=== PATIENT | female | born 1930 | race Caucasian/White ===

== ENCOUNTER 2017-07-07 12:44 | Observation (INO) | payer MEDICARE, OTHER ==
--- NOTE | 2017-07-07 13:33 | PCM.HP ---
<aSndra Gongora - Last Filed: 07/07/17 13:33> H&P History of Present Illness - General Date of Service: 07/07/17 Admit Problem/Dx: Congestive Heart Failure - Related Data Allergies/Adverse Reactions: Allergies Allergy/AdvReac Type Severity Reaction Status Date / Time ciprofloxacin Allergy Cannot Verified 01/04/17 13:54 Remember erythromycin base Allergy Cannot Verified 01/04/17 13:54 Remember penicillin V Allergy Cannot Verified 01/04/17 13:54 Remember Home Medications: Home Meds Calcium Carbonate/Vitamin D3 [Calcium 600 + Vit D 400] 1 tab PO BID 10/01/14 [ History] Fish Oil/Marianna-3 Fatty Acids [Fish Oil 1,000 MG] 1 tab PO DAILY 10/01/14 [ History] Flaxseed Oil [Flax Oil] 1,000 mg PO DAILY 10/01/14 [History] Ibuprofen [Advil] 400 mg PO BID 10/01/14 [History] Multivitamin [Multi-Vitamin Daily] 1 tab PO DAILY 10/01/14 [History] Diclofenac Sodium [Voltaren 1% Gel] 1 applic TRDERM QID 01/04/17 [History] Zoledronic Acid in Water [Reclast] 5 mg IV ASDIRECTED 01/04/17 [History] H&P Review of Systems - Review of Systems: Review Of Systems: See Below Exam - Exam Exam: See Below *Q Meaningful Use (ADM) - VTE *Q VTE Criteria *Q: - Stroke *Q Stroke Criteria *Q: - AMI *Q AMI Criteria *Q: Problem List Initiated/Reviewed/Updated: Yes <Triston Bailey - Last Filed: 07/07/17 15:44> H&P History of Present Illness - General Source of Information: Patient, Fpc Records, Old Records, RN, RN Notes Reviewed History Limitations: Reports: No Limitations - History of Present Illness Initial Comments - Free Text/Narative: Rosa Johnson is a 86 yo female who presented to our medical clinic today for [facility] assisted [facility] complaining of shortness of breath. She reported again asked noticing shortness of breath with minimal exertion yesterday afternoon. She waited until 4 AM today to report this to staff. She noted extreme shortness of breath throughout the night, although she did manage to get some sleep. [facility] staff reports oxygen saturations ranging from 70-85% overnight. The pressure was also found to be ranging from 150/90 up to 170/90. Ray at that time was 24 and heart rate in the high 90s. She remained short of breath on arrival to the clinic. Denied chest pain or palpitations. She recently had a Holter monitor and MRI performed due to unexplained falls over the past several months. These were essentially benign. She has no prior cardiac history. She reports no lightheadedness, palpitations, weakness,, chest pain, chest tightness, cough, wheezing, fever, vomiting, anxiety, rhinorrhea, sore throat, leg pain, or edema. At the clinic she was afebrile with a temp of 98.4. Heart rate was 97. Respirations 18. BP 124/64. O2 sats 96% on room air. Labs were obtained: WBC 6.57. Hemoglobin 12.9. Hematocrit 40. She was macrocytic. Platelet 230,000. Neutrophils were normal at 60.5%. D-dimer was elevated at 1.30. Troponin normal at 0.022. ProBNP was 6307. Sodium was high end of normal 143. Potassium good at 4.1. Chloride slightly elevated at 108. Carbon dioxide was 24. Anion gap was slightly high at 15.1. Blood glucose was 118. BUN was 17. Creatinine 1.2. EGFR was 42. Protein was 6.8. Albumin 3.1. Alkaline phosphatase 90. ALT 24. AST 22. Chest x-ray was obtained and shows congestive findings. Since pending a formal radiologist review. Due to the elevated d-dimer a CTA was performed this is interpreted by Dr. Lester as: 1. No findings of pulmonary embolism. 2. Groundglass appearance of the lungs raising the possibility of pulmonary vascular congestion. 3. Minimal right- sided pleural effusion and other incidental findings. Her EKG was obtained and shows a normal sinus rhythm. A J-point is noted in anterior lateral leads, but no changes concerning for ischemia. 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 The patient is subsequently admitted to observation with telemetry for suspected new onset CHF. She is a full code. Her PCP is Stephany Rose, nurse practitioner, here at [facility]. H&P Review of Systems - Review of Systems: Review Of Systems: See Below General: Reports: No Symptoms. Denies: Fever, Chills, Malaise, Weakness, Fatigue, Night Sweats, Diaphoresis, Decreased Appetite, Weight Loss, Weight Gain HEENT: Reports: No Symptoms. Denies: Dysphasia, Ear Pain, Eye Pain, Headaches, Hearing Changes, Rhinitis, Post Nasal Drip, Sinus Congestion, Sore Throat, Visual Changes Pulmonary: Reports: No Symptoms. Denies: Shortness of Breath (earlier but not currently ), Wheezing, Pleuritic Chest Pain, Cough, Sputum, Hemoptysis Cardiovascular: Reports: Dyspnea on Exertion, Orthopnea, PND. Denies: Chest Pain, Palpitations, Edema, Lightheadedness, Syncope, Claudication, Blood Pressure Problem Gastrointestinal: Reports: No Symptoms. Denies: Abdominal Pain, Anorexia, Constipation, Diarrhea, Decreased Appetite, Difficulty Swallowing, Melena, Nausea, Vomiting Genitourinary: Reports: No Symptoms. Denies: Dysuria, Frequency, Burning, Pain , Urgency Musculoskeletal: Reports: No Symptoms. Denies: Neck Pain, Shoulder Pain, Arm Pain, Back Pain, Leg Pain, Joint Pain, Joint Swelling, Muscle Pain, Muscle Stiffness Skin: Reports: No Symptoms Psychiatric: Reports: No Symptoms. Denies: Confusion, Depression, Anxiety Neurological: Reports: No Symptoms. Denies: Confusion, Dizziness, Headache, Numbness, Paresthesia, Seizure, Tremors, Trouble Speaking, Difficulty Walking, Weakness, Change in Speech, Gait Disturbance Hematologic/Lymphatic: Reports: No Symptoms Immunologic: Reports: No Symptoms Exam - Exam Exam: See Below - Exam Quality Assessment: DVT Prophylaxis. No: Supplemental Oxygen General: Alert, Oriented, Cooperative. No: Mild Distress HEENT: Conjunctiva Clear, EACs Clear, EOMI, Hearing Intact, Nares Patent, Normal Nasal Septum, Posterior Pharynx Clear, Other (Oral mucosa dry with fissured tongue.), PERRLA Neck: Supple, Trachea Midline, Full Range of Motion. No: JVD, Thyromegaly Lungs: Clear to Auscultation, Normal Respiratory Effort, Decreased Breath Sounds Cardiovascular: Regular Rate, Regular Rhythm, Normal S1, Normal S2 GI/Abdominal Exam: Normal Bowel Sounds, Soft, Non-Tender, No Organomegaly, No Distention, No Abnormal Bruit, No Mass, Pelvis Stable (Female) Exam: Deferred Rectal (Female) Exam: Deferred Back Exam: Normal Inspection, Full Range of Motion. No: CVA Tenderness (L), CVA Tenderness (R) Extremities: Normal Inspection, Normal Range of Motion, Non-Tender, No Pedal Edema, Normal Capillary Refill Peripheral Pulses: 2+: Radial (L), Radial (R), Posterior Tibial (L), Posterior Tibial (R), Dorsalis Pedis (L), Dorsalis Pedis (R) Skin: Warm, Dry, Intact Neurological: Cranial Nerves Intact (Grossly) Neuro Extensive - Mental Status: Alert, Oriented x3, Normal Mood/Affect, Normal Cognition, Memory Intact Neuro Extensive - Motor, Sensory, Reflexes: CN II-XII Intact (Grossly), Normal Gait Psychiatric: Alert, Normal Affect, Normal Mood *Q Meaningful Use (ADM) - VTE *Q VTE Criteria *Q: - Stroke *Q Stroke Criteria *Q: - AMI *Q AMI Criteria *Q: - Problem List (1) Hypoxia SNOMED Code(s): 791245196 ICD Code: R09.02 - HYPOXEMIA Status: Acute Priority: High Current Visit : Yes (2) Shortness of breath SNOMED Code(s): 722497024 ICD Code: R06.02 - SHORTNESS OF BREATH Status: Acute Priority: High Current Visit: Yes (3) Heart failure SNOMED Code(s): 83211714 ICD Code: I50.9 - HEART FAILURE, UNSPECIFIED Status: Suspected Priority: High Current Visit: Yes Qualifiers: Heart failure type: unspecified heart failure type Heart failure chronicity : unspecified heart failure chronicity Qualified Code(s): I50.9 - Heart failure, unspecified (4) Arthritis SNOMED Code(s): 4562353 ICD Code: M19.90 - UNSPECIFIED OSTEOARTHRITIS, UNSPECIFIED SITE Status: Chronic Priority: Low Current Visit: No (5) HLD (hyperlipidemia) SNOMED Code(s): 45479881 ICD Code: E78.5 - HYPERLIPIDEMIA, UNSPECIFIED Status: Chronic Priority: Low Current Visit: No Qualifiers: Hyperlipidemia type: pure hypercholesterolemia Qualified Code(s): E78.00 - Pure hypercholesterolemia, unspecified; E78.0 - Pure hypercholesterolemia (6) Age related osteoporosis SNOMED Code(s): 929138628 ICD Code: M81.0 - AGE-RELATED OSTEOPOROSIS W/O CURRENT PATHOLOGICAL FRACTURE Status: Chronic Priority: Low Current Visit: No Qualifiers: Presence of current pathological fracture: without current pathological fracture Qualified Code(s): M81.0 - Age-related osteoporosis without current pathological fracture (7) Recurrent falls SNOMED Code(s): 921079386 ICD Code: R29.6 - REPEATED FALLS Status: Chronic Priority: Low Current Visit: No Problem List Initiated/Reviewed/Updated: Yes Orders Last 24hrs: Active Orders 24 hr Category Date Time Status Resuscitation Status Routine Resus Stat 07/07/17 14:08 Ordered Assessment/Plan Comment:: I/P Acute: Hypoxia and shortness of breath - Reportedly started to worsen yesterday; SOB even at rest - Assisted living staff reports O2 saturations of 72-85% overnight - No cough, fever, or cold symptoms - No pedal edema - Recent Holter monitor with no findings - Was seen in clinic today by PCP - 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 - D-dimer elevate at 1.30 - CTA negative but shows findings suggestive of vascular congestion - Troponin negative - Pro-BNP 6307 - Reports using multiple pillows at night to elevate head for sleep - Worsening dyspnea on exertion - Suspect new onset heart failure - Echo ordered - Lasix BID to diurese - Sodium restriction - Fluid restriction - O2 as needed Chronic: Arthritis - stable HLD Osteoporosis - stable Recurrent falls Plan: Admit to medical floor observation status with telemetry CM for discharge planning PT/OT Routine AM labs Other orders as indicated above Home medications as ordered GI prophylaxis: Pepcid DVT/PE prophylaxis: Ambulate and DEEPAK Hose Fall risk; Code status: Full code. Her PCP is Stephany Rose, nurse practitioner, here at [facility].
[2017-07-07] MEDS ORDERED: Albuterol/Ipratropium 3.0-0.5 MG/3 ML Neb Soln NEB PRN (14:42)
[2017-07-07] MEDS ORDERED: Sodium Chloride 0.9% 10 ML Syringe FLUSH PRN (14:42)
[2017-07-07] MEDS ORDERED: Ondansetron 4 MG Tab.DIS PO PRN (14:42)
[2017-07-07] MEDS ORDERED: Docusate Sodium 100 MG Cap PO PRN (14:42)
[2017-07-07] MEDS ORDERED: Ondansetron 4 MG/2 ML SDV IV PRN (14:42)
[2017-07-07] MEDS ORDERED: Polyethylene Glycol 3350 Powder 17 GM Packet PO PRN (14:42)
[2017-07-07] MEDS ORDERED: Acetaminophen 325 MG Tab PO PRN (14:42)
[2017-07-07] MEDS ORDERED: Bisacodyl 5 MG Tab PO PRN (14:42)
[2017-07-07] MEDS ORDERED: Acetaminophen/HYDROcodone 325-5 MG Tab PO PRN (14:42)
[2017-07-07] MEDS ORDERED: Temazepam 7.5 MG Cap PO PRN (14:42)
[2017-07-07] MEDS ORDERED: Furosemide 40 MG/4 ML VIAL IVPUSH ONE (14:51)
[2017-07-07] MEDS ORDERED: Furosemide 20 MG/2 ML VIAL IVPUSH SCH (21:00)
[2017-07-08] MEDS: Furosemide 20 MG/2 ML VIAL IVPUSH SCH ×2 (05:57→13:47)
[2017-07-08] MEDS: Calcium Carbonate/Vitamin D3 1500 MG-200 Units Tab PO SCH ×3 (08:28→20:42)
[2017-07-08] MEDS: Mupirocin Oint 22 GM Tube TOP SCH ×2 (08:28→20:50)
[2017-07-08] MEDS: Multivitamins,Therapeutic Tab PO SCH (08:29)
[2017-07-08] MEDS: Famotidine 20 MG Tab PO SCH (08:29)
[2017-07-08] MEDS ORDERED: Potassium Chloride 20 MEQ Tab.ER PO ONE (08:30)
--- NOTE | 2017-07-08 11:12 | PCM.PN ---
- General Info Date of Service: 07/08/17 Admission Dx/Problem (Free Text): Congestive Heart Failure "Kaur" is seen this morning resting in bed. She has been more short of breath this morning specifically with exertion. She is up to the bathroom with assistance. Blood pressure has been mildly elevated 140s over 90s to 110s. She did eat breakfast but has a decreased appetite. She is getting IV Lasix twice a day. Oxygen via nasal cannula was placed this morning for hypoxia with O2 sats in the 80s on room air. She feels much better with oxygen in place and shortness of breath is much improved. Functional Status: Reports: Pain Controlled, Tolerating Diet, Ambulating, Urinating - Review of Systems General: Reports: Weakness, Fatigue HEENT: Reports: No Symptoms Pulmonary: Reports: Shortness of Breath. Denies: Cough Cardiovascular: Reports: Dyspnea on Exertion. Denies: Chest Pain, Palpitations Gastrointestinal: Reports: No Symptoms. Denies: Abdominal Pain, Diarrhea, Nausea, Vomiting Genitourinary: Reports: Other (voiding) Musculoskeletal: Reports: No Symptoms Neurological: Reports: No Symptoms. Denies: Confusion, Headache - Patient Data Vitals - Most Recent: Last Vital Signs Temp 97.2 F 07/08/17 10:59 Pulse 89 07/08/17 10:59 Resp 18 07/08/17 10:59 BP 137/89 07/08/17 10:59 Pulse Ox 92 L 07/08/17 10:59 Weight - Most Recent: 122 lb 9.6 oz I&O - Last 24 Hours: Intake & Output 07/07/17 07/08/17 07/08/17 22:59 06:59 14:59 Intake Total 300 150 240 Output Total 250 1600 Balance 50 -1450 240 Lab Results Last 24 Hours: Laboratory Results - last 24 hr 07/07/17 07/08/17 07/08/17 Range/Units 17:58 06:00 06:00 WBC 6.77 (3.98-10.04) K/mm3 RBC 4.05 (3.98-5.22) M/mm3 Hgb 13.0 (11.2-15.7) gm/L Hct 40.5 (34.1-44.9) % MCV 100.0 H (79.4-94.8) fl MCH 32.1 (25.6-32.2) pg MCHC 32.1 L (32.2-35.5) g/dl RDW Std Deviation 53.5 H (36.4-46.3) fL Plt Count 220 (182-369) K/mm3 MPV 11.6 (9.4-12.3) fl Neut % (Auto) 53.8 (34.0-71.1) % Lymph % (Auto) 27.0 (19.3-51.7) % Guthrie % (Auto) 13.9 H (4.7-12.5) % Eos % (Auto) 4.0 (0.7-5.8) Baso % (Auto) 1.2 (0.1-1.2) % Neut # (Auto) 3.64 (1.56-6.13) K/mm3 Lymph # (Auto) 1.83 (1.18-3.74) K/mm3 Guthrie # (Auto) 0.94 H (0.24-0.36) K/mm3 Eos # (Auto) 0.27 (0.04-0.36) K/mm3 Baso # (Auto) 0.08 (0.01-0.08) K/mm3 Sodium 143 (136-145) mEq/L Potassium 3.4 L (3.5-5.1) mEq/L Chloride 108 H (98-107) mEq/L Carbon Dioxide 27 (21-32) mEq/L Anion Gap 11.4 (5-15) BUN 13 (7-18) mg/dL Creatinine 0.9 (0.55-1.02) mg/dL Est Cr Clr Drug Dosing 38.66 mL/min Estimated GFR (MDRD) 59 (>60) mL/min BUN/Creatinine Ratio 14.4 (14-18) Glucose 87 (83-115) mg/dL Calcium 8.7 (8.5-10.1) mg/dL Magnesium 2.1 (1.8-2.4) mg/dl NT-Pro-B Natriuret Pep 4018 H (0-450) pg/mL MRSA (PCR) Positive H Med Orders - Current: Current Medications Acetaminophen (Tylenol) 650 mg PO Q4H PRN PRN Reason: Pain (Mild 1-3)/fever Hydrocodone Bitart/Acetaminophen ([place]ell 325-5 Mg) 1 tab PO Q4H PRN PRN Reason: Pain (moderate 4-6) Albuterol/Ipratropium (Duoneb 3.0-0.5 Mg/3 Ml) 3 ml NEB Q4H PRN PRN Reason: Shortness Of Breath/wheezing Aspirin (Aspirin) 81 mg PO BEDTIME [facility]ENNIFER Bisacodyl (Dulcolax) 5 mg PO DAILY PRN PRN Reason: Constipation Calcium Carbonate (Calcium Carbonate/Vitamin D 1500 Mg-200 Unit) 1 tab PO BID [facility] Last Admin: 07/08/17 08:32 Dose: Not Given Docusate Sodium (Colace) 100 mg PO BID PRN PRN Reason: Constipation Famotidine (Pepcid) 20 mg PO DAILY [facility] Last Admin: 07/08/17 08:29 Dose: 20 mg Furosemide (Lasix) 20 mg IVPUSH BIDDIURETIC [facility] Last Admin: 07/08/17 05:57 Dose: 20 mg Lisinopril (Prinivil) 10 mg PO DAILY [facility] Magnesium Sulfate (Pharmacy To Dose - Magnesium Replacement) 1 dose .XX ASDIRECTED PRN PRN Reason: RX TO WATCH MAG LEVELS Multivitamins (Thera) 1 each PO DAILY [facility] Last Admin: 07/08/17 08:29 Dose: 1 each Mupirocin (Bactroban Oint) 0 gm TOP BID [facility] Stop: 07/13/17 09:01 Last Admin: 07/08/17 08:28 Dose: 1 applic Ondansetron HCl (Zofran Odt) 4 mg PO Q6H PRN PRN Reason: nausea, able to take PO Ondansetron HCl (Zofran) 4 mg IV Q6H PRN PRN Reason: Nausea/Vomiting Polyethylene Glycol (Miralax) 17 gm PO DAILY PRN PRN Reason: Constipation Potassium Chloride (Pharmacy To Dose - Potassium Replacement) 1 dose .XX ASDIRECTED PRN PRN Reason: RX TO WATCH K LEVELS Senna/Docusate Sodium (Senna Plus) 1 tab PO BID PRN PRN Reason: Constipation Sodium Chloride (Saline Flush) 10 ml FLUSH ASDIRECTED PRN PRN Reason: Keep Vein Open Temazepam (Restoril) 7.5 mg PO BEDTIME PRN PRN Reason: Sleep Discontinued Medications Furosemide (Lasix) 20 mg IVPUSH NOW ONE Stop: 07/07/17 14:52 Last Admin: 07/07/17 16:17 Dose: 20 mg Furosemide (Lasix) 20 mg IVPUSH BID [facility] Potassium Chloride (Klor-Con M20) 40 meq PO ONETIME ONE Stop: 07/08/17 08:31 Last Admin: 07/08/17 08:28 Dose: 40 meq - Exam Quality Assessment: Supplemental Oxygen, DVT Prophylaxis General: Alert, Oriented, Cooperative, No Acute Distress HEENT: Pupils Equal, EOMI, Mucous Membr. Moist/Max Neck: Supple Lungs: Normal Respiratory Effort, Rales (bilat bases) Cardiovascular: Regular Rate, Regular Rhythm, No Murmurs GI/Abdominal Exam: Normal Bowel Sounds, Soft, Non-Tender (Female) Exam: Deferred Back Exam: Normal Inspection Extremities: No Pedal Edema, Normal Capillary Refill Peripheral Pulses: 1+: Dorsalis Pedis (L), Dorsalis Pedis (R) Neurological: No New Focal Deficit Psy/Mental Status: Alert, Normal Affect, Normal Mood - Problem List & Annotations (1) CHF (congestive heart failure) SNOMED Code(s): 77511542 Code(s): I50.9 - HEART FAILURE, UNSPECIFIED Status: Acute Priority: High Current Visit: Yes Qualifiers: Congestive heart failure type: unspecified congestive heart failure type Congestive heart failure chronicity: acute Qualified Code(s): I50.9 - Heart failure, unspecified (2) Hypertension SNOMED Code(s): 35466259 Code(s): I10 - ESSENTIAL (PRIMARY) HYPERTENSION Status: Acute Priority: High Current Visit: Yes Qualifiers: Hypertension type: essential hypertension Qualified Code(s): I10 - Essential (primary) hypertension (3) Hypoxia SNOMED Code(s): 167210976 Code(s): R09.02 - HYPOXEMIA Status: Acute Priority: High Current Visit : Yes (4) Shortness of breath SNOMED Code(s): 554766157 Code(s): R06.02 - SHORTNESS OF BREATH Status: Acute Priority: High Current Visit: Yes (5) HLD (hyperlipidemia) SNOMED Code(s): 38791659 Code(s): E78.5 - HYPERLIPIDEMIA, UNSPECIFIED Status: Chronic Priority: Medium Current Visit: Yes Qualifiers: Hyperlipidemia type: pure hypercholesterolemia Qualified Code(s): E78.00 - Pure hypercholesterolemia, unspecified; E78.0 - Pure hypercholesterolemia - Problem List Review Problem List Initiated/Reviewed/Updated: Yes - My Orders Last 24 Hours: My Active Orders 07/08/17 11:06 Consult to Grain Inspector [CONS] Routine 07/08/17 11:07 MYCOPLASMA PNEUMONIAE IGM AB [CHEM] Routine STREP PNEUMONIAE ANTIGEN [MREF] Routine 07/08/17 11:11 LIPID PANEL [CHEM] Routine 07/08/17 11:15 Lisinopril [Prinivil] 10 mg PO DAILY 07/08/17 21:00 Aspirin 81 mg PO BEDTIME 07/09/17 05:11 Chest 2V [CR] AM - Plan Plan:: I/P Acute: Hypoxia and shortness of breath-- Likely new onset CHF. -Etiology uncertain- r/o infectious- mycoplasma and strep pneumo ordered. She is coughing, will order influenza screen as well. 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 - D-dimer elevate at 1.30; CTA negative but shows findings suggestive of vascular congestion - Troponin negative - Pro-BNP 6307--> 4018 - Echo ordered; completed and awaiting results - Lasix BID to diurese, add lisinopril 10mg PO daily, add low dose spironolactone - Sodium restriction; Fluid restriction - O2 as needed -- this morning, hypoxic on RA with symptoms of SOB-- Chronic: Arthritis - stable HLD -- LDL 107, add statin Osteoporosis - stable Recurrent falls Plan: Admit to medical floor observation status with telemetry CM for discharge planning PT/OT Routine AM labs Other orders as indicated above Home medications as ordered GI prophylaxis: Pepcid DVT/PE prophylaxis: Ambulate and DEEPAK Hose Fall risk; Code status: Full code. Her PCP is Stephany Rose, nurse practitioner, here at [facility].
[2017-07-08] MEDS ORDERED: Lisinopril 10 MG Tab PO SCH (11:15)
[2017-07-08] MEDS ORDERED: Spironolactone 25 MG Tab PO SCH (13:15)
--- NOTE | 2017-07-08 13:51 | CR ---
Chest: Two views of the chest were obtained. Comparison: Prior chest x-ray of 07/07/17. Atelectasis is seen within the left base. Small right-sided pleural effusion is seen. Pulmonary vessels remain congested. Heart size is within normal limits. Tortuous thoracic aorta is noted. Scoliosis is noted within the spine. Bony structures are osteoporotic. Previous right shoulder surgery is seen. Impression: 1. Pulmonary vessels remain congested. Left basilar atelectasis. 2. Other incidental findings. Note: No significant change is seen from previous chest x-ray. Diagnostic code #3
[2017-07-08] MEDS ORDERED: Aspirin 81 MG Tab.Chew PO SCH (21:00)
[2017-07-08] MEDS ORDERED: Simvastatin 10 MG Tab PO SCH (21:00)
[2017-07-09] MEDS: Furosemide 20 MG/2 ML VIAL IVPUSH SCH (06:15)
--- NOTE | 2017-07-09 08:22 | PCM.DCSUM1 ---
Discharge Summary - Hospital Course HPI Initial Comments: Rosa Johnson is a 86 yo female who presented to our medical clinic today for [facility] complaining of shortness of breath. She reported again asked noticing shortness of breath with minimal exertion yesterday afternoon. She waited until 4 AM today to report this to staff. She noted extreme shortness of breath throughout the night, although she did manage to get some sleep. [facility] staff reports oxygen saturations ranging from 70-85% overnight. The pressure was also found to be ranging from 150/90 up to 170/90. Mr. Gonzalez at that time was 24 and heart rate in the high 90s. She remained short of breath on arrival to the clinic. Denied chest pain or palpitations. She recently had a Holter monitor and MRI performed due to unexplained falls over the past several months. These were essentially benign. She has no prior cardiac history. She reports no lightheadedness, palpitations, weakness,, chest pain, chest tightness, cough, wheezing, fever, vomiting, anxiety, rhinorrhea, sore throat, leg pain, or edema. At the clinic she was afebrile with a temp of 98.4. Heart rate was 97. Respirations 18. BP 124/64. O2 sats 96% on room air. Labs were obtained: WBC 6.57. Hemoglobin 12.9. Hematocrit 40. She was macrocytic. Platelet 230,000. Neutrophils were normal at 60.5%. D-dimer was elevated at 1.30. Troponin normal at 0.022. ProBNP was 6307. Sodium was high end of normal 143. Potassium good at 4.1. Chloride slightly elevated at 108. Carbon dioxide was 24. Anion gap was slightly high at 15.1. Blood glucose was 118. BUN was 17. Creatinine 1.2. EGFR was 42. Protein was 6.8. Albumin 3.1. Alkaline phosphatase 90. ALT 24. AST 22. Chest x-ray was obtained and shows congestive findings. Since pending a formal radiologist review. Due to the elevated d-dimer a CTA was performed this is interpreted by Dr. Lester as: 1. No findings of pulmonary embolism. 2. Groundglass appearance of the lungs raising the possibility of pulmonary vascular congestion. 3. Minimal right- sided pleural effusion and other incidental findings. Her EKG was obtained and shows a normal sinus rhythm. A J-point is noted in anterior lateral leads, but no changes concerning for ischemia. 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 The patient is subsequently admitted to observation with telemetry for suspected new onset CHF. She is a full code. Her PCP is Stephany Rose, nurse practitioner, here at [facility]. - Discharge Data Discharge Date: 07/09/17 (Admit date: 07/07/17) Discharge Disposition: DC/Tfer to SNF 03 Condition: Good - Discharge Diagnosis/Problem(s) (1) Hypoxia SNOMED Code(s): 645319731 ICD Code: R09.02 - HYPOXEMIA Status: Acute Priority: High Current Visit : Yes (2) Shortness of breath SNOMED Code(s): 149166373 ICD Code: R06.02 - SHORTNESS OF BREATH Status: Acute Priority: High Current Visit: Yes (3) Heart failure SNOMED Code(s): 28844989 ICD Code: I50.9 - HEART FAILURE, UNSPECIFIED Status: Acute Priority: High Current Visit: Yes Qualifiers: Heart failure type: unspecified heart failure type Heart failure chronicity : unspecified heart failure chronicity Qualified Code(s): I50.9 - Heart failure, unspecified (4) Arthritis SNOMED Code(s): 7822822 ICD Code: M19.90 - UNSPECIFIED OSTEOARTHRITIS, UNSPECIFIED SITE Status: Chronic Priority: Low Current Visit: No (5) HLD (hyperlipidemia) SNOMED Code(s): 25914638 ICD Code: E78.5 - HYPERLIPIDEMIA, UNSPECIFIED Status: Chronic Priority: Medium Current Visit: Yes Qualifiers: Hyperlipidemia type: pure hypercholesterolemia Qualified Code(s): E78.00 - Pure hypercholesterolemia, unspecified; E78.0 - Pure hypercholesterolemia (6) Age related osteoporosis SNOMED Code(s): 642061907 ICD Code: M81.0 - AGE-RELATED OSTEOPOROSIS W/O CURRENT PATHOLOGICAL FRACTURE Status: Chronic Priority: Low Current Visit: No Qualifiers: Presence of current pathological fracture: without current pathological fracture Qualified Code(s): M81.0 - Age-related osteoporosis without current pathological fracture (7) Recurrent falls SNOMED Code(s): 853769978 ICD Code: R29.6 - REPEATED FALLS Status: Chronic Priority: Low Current Visit: No (8) Positive result for methicillin resistant Staphylococcus aureus (MRSA) screening SNOMED Code(s): 466267719 ICD Code: A49.02 - METHICILLIN RESIS STAPH INFECTION, UNSP SITE Status: Acute Priority: Medium Current Visit: Yes - Patient Summary/Data Consults: Consultations 07/07/17 14:42 Consult to Case Management [CONS] Routine Consult to Spiritual Care [CONS] Routine OT Evaluation and Treatment [CONS] Routine PT Evaluation and Treatment [CONS] Routine 07/08/17 11:06 Consult to Yarder Boss [CONS] Routine Labs Pending at D/C: None Hospital Course: I/P Acute: Hypoxia and shortness of breath-- Likely new onset CHF. - Etiology uncertain- r/o infectious- mycoplasma and strep pneumo negative. She is coughing, influenza screen negative. 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 See wall motion findings. 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 Her PCP is Stephany Rose, nurse practitioner, here at [facility]. Overall Rosa responded well to treatment. BNP continues show diuresis of excess fluid. She never developed a white count. She was weaned off oxygen. She'll be discharged back to her assisted living facility today. She is discharged with 40 mg Lasix every other day, lisinopril 5 mg daily, spironolactone 25 mg every other day. Zocor 10mg and 81 mg aspirin were added due to high LDL. She is instructed to take her weight and blood pressure daily. She should refrain from sodium. 2000mL fluid restriction. She is to follow-up with her primary care provider in 7-10 days. Potassium should be checked at that time. She should establish with cardiology. I did discuss her discharge personally with her PCP, Stephany Rose. - Patient Instructions Diet: Heart Healthy Diet, Low Sodium Activity: As Tolerated Driving: Do Not Drive Showering/Bathing: May Shower Notify Provider of: Fever, Increased Pain, Nausea and/or Vomiting (increased swelling and shortness of breath ) - Discharge Plan Prescriptions/Med Rec: Aspirin 81 mg PO BEDTIME #30 tab.chew Furosemide [Lasix] 40 mg PO DAILY #20 tablet Lisinopril [Prinivil] 5 mg PO DAILY #20 tablet Mupirocin Oint [Bactroban Oint] 2 gm TOP BID 3 Days #3 tube Simvastatin [Zocor] 10 mg PO BEDTIME #20 tablet Spironolactone [Aldactone] 25 mg PO DAILY #20 tablet Home Medications: Home Meds Fish Oil/[place]-3 Fatty Acids [Fish Oil 1,000 MG] 1 tab PO DAILY 10/01/14 [ History] Flaxseed Oil [Flax Oil] 1,000 mg PO DAILY 10/01/14 [History] Ibuprofen [Advil] 400 mg PO BID 10/01/14 [History] Multivitamin [Multi-Vitamin Daily] 1 tab PO DAILY 10/01/14 [History] Zoledronic Acid in Water [Reclast] 5 mg IV ASDIRECTED 01/04/17 [History] Acetaminophen 500 mg PO Q4HR PRN 07/08/17 [History] Ascorbate Calcium [Vitamin C] 500 mg PO DAILY 07/08/17 [History] Calcium/Magnesium/Zinc [Calcium & Magnesium plus Zinc] 1 tab PO DAILY 07/08/17 [ History] Garlic 200 mg PO DAILY 07/08/17 [History] Aspirin 81 mg PO BEDTIME #30 tab.chew 07/09/17 [Rx] Furosemide [Lasix] 40 mg PO DAILY #20 tablet 07/09/17 [Rx] Lisinopril [Prinivil] 5 mg PO DAILY #20 tablet 07/09/17 [Rx] Mupirocin Oint [Bactroban Oint] 2 gm TOP BID 3 Days #3 tube 07/09/17 [Rx] Simvastatin [Zocor] 10 mg PO BEDTIME #20 tablet 07/09/17 [Rx] Spironolactone [Aldactone] 25 mg PO DAILY #20 tablet 07/09/17 [Rx] Patient Handouts: Low-Sodium Eating Plan, Heart Failure, [id number], Cooking With Less Salt, Fluid Restriction Referrals: Stephany Rose, [facility] [Primary Care Provider] - - Discharge Summary/Plan Comment DC Time >30 min.: Yes (45 mins) - General Info Date of Service: 07/09/17 Admission Dx/Problem (Free Text: Congestive Heart Failure "Kaur" is seen this morning resting in bed. She has been more short of breath this morning specifically with exertion. She is up to the bathroom with assistance. Blood pressure has been mildly elevated 140s over 90s to 110s. She did eat breakfast but has a decreased appetite. She is getting IV Lasix twice a day. Oxygen via nasal cannula was placed this morning for hypoxia with O2 sats in the 80s on room air. She feels much better with oxygen in place and shortness of breath is much improved. Functional Status: Reports: Pain Controlled, Tolerating Diet, Ambulating, Urinating. Denies: New Symptoms - Review of Systems General: Reports: Weakness (improved ), Fatigue (improved ). Denies: Fever, Malaise, Chills HEENT: Reports: No Symptoms. Denies: Ear Pain, Eye Pain, Headaches, Post Nasal Drip, Sinus Congestion, Sore Throat, Visual Changes Pulmonary: Reports: Shortness of Breath (improved ), Cough ("after eating I think food sometimes goes down the wrong pipe"). Denies: Pleuritic Chest Pain, Sputum, Hemoptysis, Wheezing Cardiovascular: Reports: Dyspnea on Exertion, Orthopnea. Denies: Chest Pain, Palpitations, Edema, Lightheadedness Gastrointestinal: Reports: No Symptoms. Denies: Abdominal Pain, Constipation, Diarrhea, Nausea, Vomiting Genitourinary: Reports: No Symptoms. Denies: Dysuria, Frequency, Burning, Pain , Urgency Musculoskeletal: Reports: No Symptoms Skin: Reports: No Symptoms Neurological: Reports: No Symptoms Psychiatric: Reports: No Symptoms - Patient Data Vitals - Most Recent: Last Vital Signs Temp 97.5 F 07/09/17 04:39 Pulse 74 07/09/17 04:39 Resp 18 07/09/17 04:39 BP 101/51 L 07/09/17 04:39 Pulse Ox 93 L 07/09/17 08:00 Weight - Most Recent: 121 lb 1.6 oz I&O - Last 24 hours: Intake & Output 07/08/17 07/09/17 07/09/17 22:59 06:59 14:59 Intake Total 720 400 Output Total 700 450 Balance 20 -50 Lab Results - Last 24 hrs: Laboratory Results - last 24 hr 07/08/17 07/09/17 07/09/17 Range/Units 06:00 06:15 06:15 WBC 6.94 (3.98-10.04) K/mm3 RBC 3.92 L (3.98-5.22) M/mm3 Hgb 12.8 (11.2-15.7) gm/L Hct 39.8 (34.1-44.9) % MCV 101.5 H (79.4-94.8) fl MCH 32.7 H (25.6-32.2) pg MCHC 32.2 (32.2-35.5) g/dl RDW Std Deviation 54.5 H (36.4-46.3) fL Plt Count 217 (182-369) K/mm3 MPV 11.6 (9.4-12.3) fl Neut % (Auto) 55.1 (34.0-71.1) % Lymph % (Auto) 24.6 (19.3-51.7) % [place] % (Auto) 13.7 H (4.7-12.5) % Eos % (Auto) 5.6 (0.7-5.8) Baso % (Auto) 0.9 (0.1-1.2) % Neut # (Auto) 3.82 (1.56-6.13) K/mm3 Lymph # (Auto) 1.71 (1.18-3.74) K/mm3 [place] # (Auto) 0.95 H (0.24-0.36) K/mm3 Eos # (Auto) 0.39 H (0.04-0.36) K/mm3 Baso # (Auto) 0.06 (0.01-0.08) K/mm3 Sodium 143 (136-145) mEq/L Potassium 3.9 (3.5-5.1) mEq/L Chloride 108 H (98-107) mEq/L Carbon Dioxide 30 (21-32) mEq/L Anion Gap 8.9 (5-15) BUN 25 H (7-18) mg/dL Creatinine 1.3 H (0.55-1.02) mg/dL Est Cr Clr Drug Dosing 26.44 mL/min Estimated GFR (MDRD) 39 (>60) mL/min BUN/Creatinine Ratio 19.2 H (14-18) Glucose 91 (83-115) mg/dL Calcium 8.7 (8.5-10.1) mg/dL Magnesium 2.2 (1.8-2.4) mg/dl NT-Pro-B Natriuret Pep 2383 H (0-450) pg/mL Triglycerides 70 (<150) mg/dL Cholesterol 176 (<200) mg/dL LDL Cholesterol Direct 109 H* (<100) mg/dL HDL Cholesterol 61.0 H (40-59) mg/dL Mycoplasma pneumon IgM Negative (NEGATIVE) JUAN ANTONIO Results - Last 24 hrs: Microbiology 07/08/17 18:37 Influenza Type A Antigen Screen - Final Nasopharyngeal Swab - Nare, Right NEGATIVE INFLUENZA A VIRUS AG Influenza Type B Antigen Screen - Final NEGATIVE INFLUENZA B VIRUS AG Med Orders - Current: Current Medications Acetaminophen (Tylenol) 650 mg PO Q4H PRN PRN Reason: Pain (Mild 1-3)/fever Hydrocodone Bitart/Acetaminophen ([place] 325-5 Mg) 1 tab PO Q4H PRN PRN Reason: Pain (moderate 4-6) Albuterol/Ipratropium (Duoneb 3.0-0.5 Mg/3 Ml) 3 ml NEB Q4H PRN PRN Reason: Shortness Of Breath/wheezing Aspirin (Aspirin) 81 mg PO BEDTIME [facility] Last Admin: 07/08/17 20:41 Dose: 81 mg Bisacodyl (Dulcolax) 5 mg PO DAILY PRN PRN Reason: Constipation Calcium Carbonate (Calcium Carbonate/Vitamin D 1500 Mg-200 Unit) 1 tab PO BID [facility] Last Admin: 07/08/17 20:42 Dose: 1 tab Docusate Sodium (Colace) 100 mg PO BID PRN PRN Reason: Constipation Famotidine (Pepcid) 20 mg PO DAILY [facility] Last Admin: 07/08/17 08:29 Dose: 20 mg Furosemide (Lasix) 20 mg IVPUSH BIDDIURETIC [facility] Last Admin: 07/09/17 06:15 Dose: 20 mg Lisinopril (Prinivil) 5 mg PO DAILY [facility] Magnesium Sulfate (Pharmacy To Dose - Magnesium Replacement) 1 dose .XX ASDIRECTED PRN PRN Reason: RX TO WATCH MAG LEVELS Multivitamins (Thera) 1 each PO DAILY [facility] Last Admin: 07/08/17 08:29 Dose: 1 each Mupirocin (Bactroban Oint) 0 gm TOP BID [facility] Stop: 07/13/17 09:01 Last Admin: 07/08/17 20:50 Dose: 1 applic Ondansetron HCl (Zofran Odt) 4 mg PO Q6H PRN PRN Reason: nausea, able to take PO Ondansetron HCl (Zofran) 4 mg IV Q6H PRN PRN Reason: Nausea/Vomiting Polyethylene Glycol (Miralax) 17 gm PO DAILY PRN PRN Reason: Constipation Potassium Chloride (Pharmacy To Dose - Potassium Replacement) 1 dose .XX ASDIRECTED PRN PRN Reason: RX TO WATCH K LEVELS Senna/Docusate Sodium (Senna Plus) 1 tab PO BID PRN PRN Reason: Constipation Simvastatin (Zocor) 10 mg PO BEDTIME [facility] Last Admin: 07/08/17 20:42 Dose: 10 mg Sodium Chloride (Saline Flush) 10 ml FLUSH ASDIRECTED PRN PRN Reason: Keep Vein Open Temazepam (Restoril) 7.5 mg PO BEDTIME PRN PRN Reason: Sleep Last Admin: 07/08/17 20:42 Dose: 7.5 mg Discontinued Medications Furosemide (Lasix) 20 mg IVPUSH NOW ONE Stop: 07/07/17 14:52 Last Admin: 07/07/17 16:17 Dose: 20 mg Furosemide (Lasix) 20 mg IVPUSH BID [facility] Lisinopril (Prinivil) 10 mg PO DAILY [facility] Last Admin: 07/08/17 11:18 Dose: 10 mg Potassium Chloride (Klor-Con M20) 40 meq PO ONETIME ONE Stop: 07/08/17 08:31 Last Admin: 07/08/17 08:28 Dose: 40 meq Spironolactone (Aldactone) 12.5 mg PO BID [facility] Last Admin: 07/08/17 13:46 Dose: 12.5 mg - Exam Quality Assessment: Reports: DVT Prophylaxis General: Reports: Alert, Oriented, Cooperative, No Acute Distress HEENT: Reports: Pupils Equal, Pupils Reactive, EOMI, Mucous Membr. Moist/Draper Neck: Reports: Supple, Trachea Midline, No JVD, No Thyromegaly Lungs: Reports: Normal Respiratory Effort, Rales (in bases - improved ) Cardiovascular: Reports: Regular Rate, Regular Rhythm, No Murmurs GI/Abdominal Exam: Normal Bowel Sounds, Soft, Non-Tender, No Organomegaly, No Distention, No Abnormal Bruit, No Mass, Pelvis Stable (Female) Exam: Deferred Rectal (Female) Exam: Deferred Back Exam: Reports: Normal Inspection, Full Range of Motion Extremities: Normal Inspection, Normal Range of Motion, Non-Tender, No Pedal Edema, Normal Capillary Refill Skin: Reports: Warm, Dry, Intact Neurological: Reports: No New Focal Deficit Psy/Mental Status: Reports: Alert, Normal Affect, Normal Mood *Q Meaningful Use (DIS) - VTE *Q VTE Criteria *Q: - Stroke *Q Stroke Criteria *Q: - AMI *Q AMI Criteria *Q:
[2017-07-09] MEDS: Famotidine 20 MG Tab PO SCH (08:53)
[2017-07-09] MEDS: Multivitamins,Therapeutic Tab PO SCH (08:53)
[2017-07-09] MEDS: Calcium Carbonate/Vitamin D3 1500 MG-200 Units Tab PO SCH (08:53)
[2017-07-09] MEDS: Mupirocin Oint 22 GM Tube TOP SCH (08:57)
[2017-07-09] MEDS ORDERED: Lisinopril 5 MG Tab PO SCH (09:00)
== END 2017-07-09 12:09 ==
LOC: JD.MS 12:44
PROVIDERS: ADMIT Internal Medicine; ATTEND Internal Medicine
DX: R09.02 Hypoxemia (principal); I50.9 Heart failure, unspecified; M19.90 Unspecified osteoarthritis, unspecified site; E78.5 Hyperlipidemia, unspecified; M81.0 Age-related osteoporosis without current pathological fracture; Z79.82 Long term (current) use of aspirin; Z79.899 Other long term (current) drug therapy; Z79.2 Long term (current) use of antibiotics; Z88.1 Allergy status to other antibiotic agents; Z88.0 Allergy status to penicillin; R06.02 Shortness of breath; R79.89 Other specified abnormal findings of blood chemistry; J90 Pleural effusion, not elsewhere classified
CPT/HCPCS: 36415; 71020; 71275; 80048; 80053; 80061; 83735; 83880; 84484; 85025; 85379; 86738; 87641; 87804; 87899; 93306; 94761; 96374; 96376; 97110; 97116; 97162; 97165; 97530; A9270; G0378; G0379; J1940; J7030; J7050; Q9967

== ENCOUNTER 2017-10-19 11:35 | Emergency (ER) | payer MEDICARE, OTHER ==
--- NOTE | 2017-10-19 12:00 | EDM.PDOC ---
ED HPI GENERAL MEDICAL PROBLEM - General Chief Complaint: Neuro Symptoms/Deficits Stated Complaint: [facility] Time Seen by Provider: 10/19/17 11:39 Source of Information: Reports: Patient, EMS History Limitations: Reports: No Limitations - History of Present Illness INITIAL COMMENTS - FREE TEXT/NARRATIVE: The patient is brought from [facility]. She states that she got up this morning, had her hair washed, went out for breakfast, followed by singing. She states that she was then going to go and exercise, but when she got to the exercise area, she was unable to exercise, feeling weak and fatigued. She states that she developed a cramp in her right hand (not tingling or numbness, as reported by the [facility] paperwork). The [facility] staff reported that she was slow to respond, transiently. It is unclear the duration of the symptoms, but the patient was asymptomatic by the time EMS arrived, and has remained so. She states that she slept very well last night, and currently feels "very good". No prior similar symptoms. - Related Data Allergies Allergy/AdvReac Type Severity Reaction Status Date / Time ciprofloxacin Allergy Cannot Verified 10/19/17 11:38 Remember erythromycin base Allergy Cannot Verified 10/19/17 11:38 Remember penicillin V Allergy Cannot Verified 10/19/17 11:38 Remember Home Meds: Home Meds Fish Oil/Lynn-3 Fatty Acids [Fish Oil 1,000 MG] 1 tab PO DAILY 10/01/14 [ History] Multivitamin [Multi-Vitamin Daily] 1 tab PO DAILY 10/01/14 [History] Zoledronic Acid in Water [Reclast] 5 mg IV ASDIRECTED 01/04/17 [History] Acetaminophen 500 mg PO Q4HR PRN 07/08/17 [History] Ascorbate Calcium [Vitamin C] 500 mg PO DAILY 07/08/17 [History] Garlic 200 mg PO DAILY 07/08/17 [History] Aspirin 81 mg PO BEDTIME #30 tab.chew 07/09/17 [Rx] Furosemide [Lasix] 40 mg PO DAILY #20 tablet 07/09/17 [Rx] Lisinopril [Prinivil] 5 mg PO DAILY #20 tablet 07/09/17 [Rx] Simvastatin [Zocor] 10 mg PO BEDTIME #20 tablet 07/09/17 [Rx] Spironolactone [Aldactone] 25 mg PO DAILY #20 tablet 07/09/17 [Rx] Diclofenac Sodium [Voltaren] 1 applic TOP ASDIRECTED PRN 10/19/17 [History] Metoprolol Succinate [Toprol Xl] 12.5 mg PO DAILY 10/19/17 [History] Multivits,Ca,Minerals/Iron/FA [Women's Daily Formula Caplet] 1 each PO DAILY 10/03 [History] Past Medical History Cardiovascular History: Reports: Heart Failure, High Cholesterol Genitourinary History: Reports: Urinary Incontinence 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: Musculoskeletal History: Reports: Back Pain, Chronic (spinal stenosis), Fracture (sacrum), Osteoarthritis, Osteoporosis - Infectious Disease History Infectious Disease History: Reports: MRSA - Past Surgical History HEENT Surgical History: Reports: Cataract Surgery GI Surgical History: Reports: Appendectomy Neurological Surgical History: Reports: Lumbar Spine (x 2) Musculoskeletal Surgical History: Reports: Carpal Tunnel, Shoulder Surgery ( right) Social & Family History - Tobacco Use Smoking Status *Q: Never Smoker - Caffeine Use Caffeine Use: Reports: None - Alcohol Use Days Per Week of Alcohol Use: 7 Number of Drinks Per Day: 1 Total Drinks Per Week: 7 - Recreational Drug Use Recreational Drug Use: No - Living Situation & Occupation Living situation: Reports: Assisted Living ([facility]) Occupation: Retired ED ROS GENERAL - Review of Systems Review Of Systems: ROS reveals no pertinent complaints other than HPI. ED EXAM, GENERAL - Physical Exam Exam: See Below Exam Limited By: No Limitations General Appearance: Alert, WD/WN, No Apparent Distress Eye Exam: Bilateral Eye: EOMI Ears: Normal External Exam, Hearing Loss (mild) Nose: Normal Inspection, No Blood Throat/Mouth: Normal Inspection, Normal Lips, Normal Voice, No Airway Compromise Head: Atraumatic, Normocephalic Neck: Normal Inspection, Full Range of Motion Respiratory/Chest: No Respiratory Distress, Lungs Clear, Normal Breath Sounds, No Accessory Muscle Use Cardiovascular: Normal Peripheral Pulses, Regular Rate, Rhythm, No Edema, No Gallop, No JVD, No Murmur, No Rub Peripheral Pulses: 4+: Radial (L), Radial (R) GI/Abdominal: Normal Bowel Sounds, Soft, Non-Tender, No Organomegaly, No Distention, No Abnormal Bruit, No Mass (Female) Exam: Deferred Rectal (Female) Exam: Deferred Back Exam: Normal Inspection, Full Range of Motion, NT Extremities: Normal Inspection, Normal Range of Motion, No Pedal Edema, Normal Capillary Refill Neurological: Alert, Oriented, Normal Cognition, No Motor/Sensory Deficits Psychiatric: Normal Affect Skin Exam: Warm, Dry, Intact, Normal Color, No Rash EKG INTERPRETATION EKG Date: 10/19/17 Time: 12:38 Rhythm: Other (Sinus bradycardia) Rate (Beats/Min): 59 [place]: LAD-Left [place]rington Deviation P-Wave: Present (First-degree AV block) QRS: LBBB QT: Normal Comparison: Change From Previous EKG (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) Course - Vital Signs Last Recorded V/S: Last Vital Signs Temp 37.2 C 10/19/17 11:39 Pulse 75 10/19/17 11:39 Resp 22 H 10/19/17 11:39 BP 146/84 H 10/19/17 11:39 Pulse Ox 98 10/19/17 11:39 Orthostatic Blood Pressure [ 95/54 Standing] Orthostatic Blood Pressure [ 107/52 Supine] - Orders/Labs/Meds Orders: Active Orders 24 hr Category Date Time Status EKG Documentation Completion [RC] STAT Care 10/19/17 11:53 Active Orthostatic Vital Signs [RC] STAT Care 10/19/17 11:52 Active Chest 2V [CR] Stat Exams 10/19/17 11:52 Taken CULTURE BLOOD [BC] Stat Lab 10/19/17 12:21 Received CULTURE BLOOD [BC] Stat Lab 10/19/17 12:30 Received UA W/MICROSCOPIC [URIN] Stat Lab 10/19/17 13:10 Ordered Blood Culture x2 Reflex Set [OM.PC] Stat Oth 10/19/17 11:54 Ordered Labs: Laboratory Tests 10/19/17 10/19/17 10/19/17 Range/Units 11:33 11:50 11:50 WBC 8.18 (3.98-10.04) K/mm3 RBC 4.01 (3.98-5.22) M/mm3 Hgb 13.2 (11.2-15.7) gm/L Hct 40.3 (34.1-44.9) % MCV 100.5 H (79.4-94.8) fl MCH 32.9 H (25.6-32.2) pg MCHC 32.8 (32.2-35.5) g/dl RDW Std Deviation 55.5 H (36.4-46.3) fL Plt Count 189 (182-369) K/mm3 MPV 11.1 (9.4-12.3) fl Neutrophils % (Manual) 65 H (40-60) % Band Neutrophils % 0 (0-10) % Lymphocytes % (Manual) 22 (20-40) % Atypical Lymphs % 0 % Monocytes % (Manual) 9 (2-10) % Eosinophils % (Manual) 3 (0.7-5.8) % Basophils % (Manual) 1 (0.1-1.2) Platelet Estimate Adequate RBC Morph Comment Normal PT (8.0-13.0) SECONDS INR APTT (22-36) SECONDS D-Dimer, Quantitative (0.19-0.59) mg/L Sodium 143 (136-145) mEq/L Potassium 5.1 (3.5-5.1) mEq/L Chloride 105 (98-107) mEq/L Carbon Dioxide 28 (21-32) mEq/L Anion Gap 15.1 H (5-15) BUN 26 H (7-18) mg/dL Creatinine 1.4 H (0.55-1.02) mg/dL Est Cr Clr Drug Dosing 24.26 mL/min Estimated GFR (MDRD) 35 (>60) mL/min BUN/Creatinine Ratio 18.6 H (14-18) Glucose 123 H (83-115) mg/dL POC Glucose 143 H (83-110) mg/dL Lactic Acid (0.4-2.0) mmol/L Calcium 9.5 (8.5-10.1) mg/dL Magnesium 2.0 (1.8-2.4) mg/dl Total Bilirubin 0.5 (0.2-1.0) mg/dL AST 27 (15-37) U/L ALT 22 (14-59) U/L Alkaline Phosphatase 66 (46-116) U/L Troponin I < 0.017 (0.00-0.056) ng/mL Total Protein 7.6 (6.4-8.2) g/dl Albumin 4.0 (3.4-5.0) g/dl Globulin 3.6 gm/dL Albumin/Globulin Ratio 1.1 (1-2) TSH 3rd Generation 1.771 (0.358-3.74) uIU/mL Urine Color (Yellow) Urine Appearance (Clear) Urine pH (5.0-8.0) Ur Specific Lee (1.005-1.030) Urine Protein (Negative) Urine Glucose (UA) (Negative) Urine Ketones (Negative) Urine Occult Blood (Negative) Urine Nitrite (Negative) Urine Bilirubin (Negative) Urine Urobilinogen (0.2-1.0) Ur Leukocyte Esterase (Negative) Urine RBC (0-5) /hpf Urine WBC (0-5) /hpf Ur Epithelial Cells (0-5) /hpf Urine Bacteria (FEW) /hpf Urine Mucus (FEW) /hpf 10/19/17 10/19/17 10/19/17 Range/Units 11:50 12:21 13:10 WBC (3.98-10.04) K/mm3 RBC (3.98-5.22) M/mm3 Hgb (11.2-15.7) gm/L Hct (34.1-44.9) % MCV (79.4-94.8) fl MCH (25.6-32.2) pg MCHC (32.2-35.5) g/dl RDW Std Deviation (36.4-46.3) fL Plt Count (182-369) K/mm3 MPV (9.4-12.3) fl Neutrophils % (Manual) (40-60) % Band Neutrophils % (0-10) % Lymphocytes % (Manual) (20-40) % Atypical Lymphs % % Monocytes % (Manual) (2-10) % Eosinophils % (Manual) (0.7-5.8) % Basophils % (Manual) (0.1-1.2) Platelet Estimate RBC Morph Comment PT 10.0 (8.0-13.0) SECONDS INR 0.94 APTT 20 L (22-36) SECONDS D-Dimer, Quantitative 1.40 H (0.19-0.59) mg/L Sodium (136-145) mEq/L Potassium (3.5-5.1) mEq/L Chloride (98-107) mEq/L Carbon Dioxide (21-32) mEq/L Anion Gap (5-15) BUN (7-18) mg/dL Creatinine (0.55-1.02) mg/dL Est Cr Clr Drug Dosing mL/min Estimated GFR (MDRD) (>60) mL/min BUN/Creatinine Ratio (14-18) Glucose (83-115) mg/dL POC Glucose (83-110) mg/dL Lactic Acid 2.1 H (0.4-2.0) mmol/L Calcium (8.5-10.1) mg/dL Magnesium (1.8-2.4) mg/dl Total Bilirubin (0.2-1.0) mg/dL AST (15-37) U/L ALT (14-59) U/L Alkaline Phosphatase (46-116) U/L Troponin I (0.00-0.056) ng/mL Total Protein (6.4-8.2) g/dl Albumin (3.4-5.0) g/dl Globulin gm/dL Albumin/Globulin Ratio (1-2) TSH 3rd Generation (0.358-3.74) uIU/mL Urine Color Light yellow (Yellow) Urine Appearance Slt cloudy H (Clear) Urine pH 6.0 (5.0-8.0) Ur Specific Lee 1.015 (1.005-1.030) Urine Protein Negative (Negative) Urine Glucose (UA) Negative (Negative) Urine Ketones Negative (Negative) Urine Occult Blood Negative (Negative) Urine Nitrite Negative (Negative) Urine Bilirubin Negative (Negative) Urine Urobilinogen 0.2 (0.2-1.0) Ur Leukocyte Esterase Negative (Negative) Urine RBC Not seen (0-5) /hpf Urine WBC 0-5 (0-5) /hpf Ur Epithelial Cells 0-5 (0-5) /hpf Urine Bacteria Not seen (FEW) /hpf Urine Mucus Not seen (FEW) /hpf - Re-Assessments/Exams Free Text/Narrative Re-Assessment/Exam: 10/19/17 12:22 Two-view chest radiograph reviewed. Cardiac silhouette is within normal limits. Tortuous aorta. No pulmonary vascular congestion. No pleural effusions. No focal infiltrate. No pneumothorax. Elevated left hemidiaphragm noted. Right shoulder surgery noted. Lumbar hardware noted. Formal read per the Radiologist pending. 10/19/17 12:48 The patient is not orthostatic. 10/19/17 13:00 CT of the head without contrast is read by Dr. Trevon as: 1. Senescent change as noted above. These findings are fairly stable from previous MRI. 2. No acute intracranial abnormality is identified on noncontrast head CT exam. 10/19/17 13:04 The patient's D-dimer has returned elevated at 1.40. Her BUN/Cr are elevated at 26/1.4. Her Cr was 1.5 on 10/05/2017 and 1.7 on 07/14/2017. My clinical suspicion for pulmonary embolus is low, and I believe that her elevated D-dimer is related to her age and renal insufficiency. 10/19/17 14:48 Test results discussed with the patient. Today's workup is grossly unremarkable and does not complain the cause of the patient's earlier weakness, sleepiness, and fatigue. As the patient feels well now, I do not see an indication to admit the patient to the hospital. I will return her to [facility] assisted [facility]. Departure - Departure Time of Disposition: 14:48 Disposition: Home, Self-Care 01 Condition: Good Clinical Impression: Weakness, Feeling tired - Discharge Information Referrals: Stephany Rose, I&C TECHNICIAN [Primary Care Provider] - Forms: ED Department Discharge Additional Instructions: Ms. Johnson was seen in the emergency room for an episode of feeling weak, tired , and fatigued. She also reported cramps to her right hand. Workup in the ER included blood work, 2 sets of blood cultures, a urinalysis, a chest x-ray, a CT scan of her head, positional blood pressure checks, and an ECG. Her workup found that she has chronic renal insufficiency, unchanged from prior tests. The remainder of her workup was unremarkable, and does not explain the cause of her symptoms. She felt fine prior to arriving to the ER, and has remained feeling well. We recommend that she follow-up with her PCP, Stephany Rose, as needed. If any other problems, please do not hesitate to return Ms. Johnson to the ER. - My Orders Last 24 Hours: My Active Orders 10/19/17 11:52 Orthostatic Vital Signs [RC] STAT Chest 2V [CR] Stat 10/19/17 11:53 EKG Documentation Completion [RC] STAT 10/19/17 11:54 Blood Culture x2 Reflex Set [OM.PC] Stat 10/19/17 12:21 CULTURE BLOOD [BC] Stat 10/19/17 12:30 CULTURE BLOOD [BC] Stat 10/19/17 13:10 UA W/MICROSCOPIC [URIN] Stat - Assessment/Plan Last 24 Hours: My Active Orders 10/19/17 11:52 Orthostatic Vital Signs [RC] STAT Chest 2V [CR] Stat 10/19/17 11:53 EKG Documentation Completion [RC] STAT 10/19/17 11:54 Blood Culture x2 Reflex Set [OM.PC] Stat 10/19/17 12:21 CULTURE BLOOD [BC] Stat 10/19/17 12:30 CULTURE BLOOD [BC] Stat 10/19/17 13:10 UA W/MICROSCOPIC [URIN] Stat
--- NOTE | 2017-10-19 12:34 | CT ---
Head CT Technique: Multiple axial sections through the brain were obtained. Intravenous contrast was not utilized. Comparison: Prior MRI brain of 06/14/17. Findings: Ventricles along with basal cisterns and sulci over convexities are moderately prominent. Diffuse diminished density is noted within the periventricular white matter and subcortical white matter which is compatible with small vessel ischemic demyelination change. 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 Atherosclerotic calcification is seen within the vertebral vessels and carotid siphon. Bone window settings were reviewed shows no acute calvarial abnormality. Visualized sinuses are clear. Impression: 1. Senescent change as noted above. These findings are fairly stable from previous MRI. 2. No acute intracranial abnormality is identified on noncontrast head CT exam. Diagnostic code #2
--- NOTE | 2017-10-19 15:06 | CR ---
Chest: Two views of the chest were obtained. Comparison: Prior chest x-ray of 10/05/17. Heart size is normal. Tortuous thoracic aorta is seen. Slight pulmonary fibrosis is noted which appears stable. Scoliosis is noted within the spine. Previous lumbar spine surgery is seen. Previous right shoulder surgery is noted. Impression: 1. Findings as noted above. Nothing acute is appreciated. Diagnostic code #2
== END 2017-10-19 15:52 | disposition home or self-care (01) ==
LOC: JD.ED 11:35
DX: R53.1 Weakness (principal); I50.9 Heart failure, unspecified; E78.00 Pure hypercholesterolemia, unspecified; Z88.1 Allergy status to other antibiotic agents; Z88.0 Allergy status to penicillin; Z79.899 Other long term (current) drug therapy
CPT/HCPCS: 36415; 70450; 70450-26; 71046; 71046-26; 80053; 81001; 82962; 83605; 83735; 84443; 84484; 85025; 85379; 85610; 85730; 87040; 93005; 93010; 99283-25; 99285-25

== ENCOUNTER 2019-07-13 07:20 | Emergency (ER) | payer MEDICARE, OTHER ==
[2019-07-13] MEDS ORDERED: Sodium Chloride 0.9% 10 ML Syringe FLUSH PRN (08:05)
[2019-07-13] MEDS ORDERED: HYDROmorphone 0.5 MG/0.5 ML Syringe IVPUSH ONE ×2 (08:07→10:59)
--- NOTE | 2019-07-13 08:10 | EDM.PDOC ---
ED HPI GENERAL MEDICAL PROBLEM - General Chief Complaint: Lower Extremity Injury/Pain Stated Complaint: [facility] Time Seen by Provider: 07/13/19 07:53 Source of Information: Reports: Patient History Limitations: Reports: No Limitations - History of Present Illness INITIAL COMMENTS - FREE TEXT/NARRATIVE: Pt is an 88 year old female who presents via EMS from [place] assisted living for right hip pain after falling last night around 0030. The patient refused transport to the ER at that time; however, was unable to move the extremity without significant pain. She did hit her head when she fell, but denies LOC. She states that she has fallen numerous times over the last couple days and she has bruises in different stages of healing to her face. She denies a hx of hip fx or prosthetic joints; however, she does have osteoporisis and osteoartritis. Pt is on daily ASA. Right Hip Pain Score (Numeric/FACES): 6 - Related Data Allergies Allergy/AdvReac Type Severity Reaction Status Date / Time ciprofloxacin Allergy Cannot Verified 07/13/19 07:28 Remember erythromycin base Allergy Cannot Verified 07/13/19 07:28 Remember penicillin V Allergy Cannot Verified 07/13/19 07:28 Remember Home Meds: Home Meds Fish Oil/[place]-3 Fatty Acids [Fish Oil 1,000 MG] 1 tab PO DAILY 10/01/14 [ History] Multivitamin [Multi-Vitamin Daily] 1 tab PO DAILY 10/01/14 [History] Zoledronic Acid in Water [Reclast] 5 mg IV ASDIRECTED 01/04/17 [History] Acetaminophen 500 mg PO Q4HR PRN 07/08/17 [History] Ascorbate Calcium [Vitamin C] 500 mg PO DAILY 07/08/17 [History] Garlic 200 mg PO DAILY 07/08/17 [History] Aspirin 81 mg PO BEDTIME #30 tab.chew 07/09/17 [Rx] Lisinopril [Prinivil] 5 mg PO DAILY #20 tablet 07/09/17 [Rx] Simvastatin [Zocor] 10 mg PO BEDTIME #20 tablet 07/09/17 [Rx] Diclofenac Sodium [Voltaren] 1 applic TOP ASDIRECTED PRN 10/19/17 [History] Metoprolol Succinate [Toprol Xl] 12.5 mg PO DAILY 10/19/17 [History] Multivit,Calc,Mins/Iron/Folic [Women's Daily Formula Caplet] 1 each PO DAILY 10/03 [History] Furosemide [Lasix] 40 mg PO ASDIRECTED 07/13/19 [History] Spironolactone [Aldactone] 25 mg PO ASDIRECTED 07/13/19 [History] Past Medical History Cardiovascular History: Reports: Heart Failure, High Cholesterol Gastrointestinal History: Reports: None Genitourinary History: Reports: Urinary Incontinence PATIENT ACCOUNTS SPECIALIST History: Reports: Musculoskeletal History: Reports: Back Pain, Chronic, Fracture, Osteoarthritis, Osteoporosis - Infectious Disease History Infectious Disease History: Reports: MRSA - Past Surgical History Head Surgeries/Procedures: Reports: Other (See Below) HEENT Surgical History: Reports: Cataract Surgery GI Surgical History: Reports: Appendectomy Neurological Surgical History: Reports: Lumbar Spine Musculoskeletal Surgical History: Reports: Carpal Tunnel, Shoulder Surgery Social & Family History - Tobacco Use Smoking Status *Q: Never Smoker Second Hand Smoke Exposure: No - Caffeine Use Caffeine Use: Reports: Coffee - Recreational Drug Use Recreational Drug Use: No - Living Situation & Occupation Living situation: Reports: Assisted Living ([place]) Occupation: Retired Review of Systems - Review of Systems Review Of Systems: See Below Constitutional: Reports: No Symptoms Eyes: Reports: No Symptoms Ears: Reports: No Symptoms Nose: Reports: No Symptoms Mouth/Throat: Reports: No Symptoms Respiratory: Reports: No Symptoms Cardiovascular: Reports: No Symptoms GI/Abdominal: Reports: No Symptoms Genitourinary: Reports: No Symptoms Musculoskeletal: Reports: No Symptoms, Leg Pain (rt hip and leg pain) Skin: Reports: No Symptoms Neurological: Reports: No Symptoms. Denies: Dizziness, Headache Psychiatric: Reports: No Symptoms ED EXAM, GENERAL - Physical Exam Exam: See Below Exam Limited By: No Limitations General Appearance: Alert, WD/WN, No Apparent Distress Nose: Other (Faint eccymosis to nasal bridge which appears to be old.) Head: Atraumatic, Normocephalic, Other (to reddened areas to right and medial forehead. Faint areas of ecchymosis below bilateral eyes which appear to be old.) Neck: Normal Inspection, Supple, Non-Tender, Full Range of Motion Respiratory/Chest: No Respiratory Distress, Lungs Clear, Normal Breath Sounds, No Accessory Muscle Use, Chest Non-Tender Cardiovascular: Normal Peripheral Pulses, Regular Rate, Rhythm, No Edema, No Murmur Peripheral Pulses: 2+: Dorsalis Pedis (R) GI/Abdominal: Normal Bowel Sounds, Soft, Non-Tender Back Exam: Normal Inspection, Full Range of Motion Extremities: Leg Pain (rt leg shortened and externally rotated. Painful to palpation over the right trochanter.) Neurological: Alert, Oriented, Normal Cognition Psychiatric: Normal Affect, Normal Mood Skin Exam: Warm, Dry, Intact, Normal Color, No Rash Lymphatic: No Adenopathy Course - Vital Signs Last Recorded V/S: Last Vital Signs Temp 98.1 F 07/13/19 07:29 Pulse 74 07/13/19 12:02 Resp 13 07/13/19 12:02 BP 167/73 H 07/13/19 12:02 Pulse Ox 98 07/13/19 12:02 - Orders/Labs/Meds Orders: Active Orders 24 hr Category Date Time Status Insert Cantu Catheter [Insert Urinary Catheter] [OM.PC] Care 07/13/19 11:30 Ordered Q24H Peripheral IV Care [RC] . DIRECTED Care 07/13/19 08:06 Active Urinary Catheter Assessment [RC] ASDIRECTED Care 07/13/19 11:30 Active Sodium Chloride 0.9% [Normal Saline] 1,000 ml Med 07/13/19 08:15 Active IV ASDIRECTED Sodium Chloride 0.9% [Saline Flush] Med 07/13/19 08:05 Active 10 ml FLUSH ASDIRECTED PRN Peripheral IV Insertion Adult [OM.PC] Stat Oth 07/13/19 08:04 Ordered Medication Orders Sodium Chloride (Normal Saline) 1,000 mls @ 150 mls/hr IV ASDIRECTED [facility] Last Admin: 07/13/19 08:16 Dose: 150 mls/hr Sodium Chloride (Saline Flush) 10 ml FLUSH ASDIRECTED PRN PRN Reason: Keep Vein Open Last Admin: 07/13/19 08:16 Dose: 10 ml Labs: Laboratory Tests 07/13/19 07/13/19 07/13/19 Range/Units 08:24 08:24 09:46 WBC 10.41 H (3.98-10.04) K/mm3 RBC 3.51 L (3.98-5.22) M/mm3 Hgb 11.5 (11.2-15.7) gm/dl Hct 35.7 (34.1-44.9) % MCV 101.7 H (79.4-94.8) fl MCH 32.8 H (25.6-32.2) pg MCHC 32.2 (32.2-35.5) g/dl RDW Std Deviation 51.9 H (36.4-46.3) fL Plt Count 187 (182-369) K/mm3 MPV 10.8 (9.4-12.3) fl Neut % (Auto) 82.0 H (34.0-71.1) % Lymph % (Auto) 9.2 L (19.3-51.7) % Harper % (Auto) 8.3 (4.7-12.5) % Eos % (Auto) 0.1 L (0.7-5.8) Baso % (Auto) 0.2 (0.1-1.2) % Neut # (Auto) 8.54 H (1.56-6.13) K/mm3 Lymph # (Auto) 0.96 L (1.18-3.74) K/mm3 Harper # (Auto) 0.86 H (0.24-0.36) K/mm3 Eos # (Auto) 0.01 L (0.04-0.36) K/mm3 Baso # (Auto) 0.02 (0.01-0.08) K/mm3 Manual Slide Review Abnormal smear Sodium 145 (136-145) mEq/L Potassium 3.4 L (3.5-5.1) mEq/L Chloride 108 H (98-107) mEq/L Carbon Dioxide 27 (21-32) mEq/L Anion Gap 13.4 (5-15) BUN 17 (7-18) mg/dL Creatinine 1.0 (0.55-1.02) mg/dL Est Cr Clr Drug Dosing 34.14 mL/min Estimated GFR (MDRD) 52 (>60) mL/min BUN/Creatinine Ratio 17.0 (14-18) Glucose 118 H (83-115) mg/dL Calcium 8.1 L (8.5-10.1) mg/dL Total Bilirubin 0.6 (0.2-1.0) mg/dL AST 23 (15-37) U/L ALT 26 (14-59) U/L Alkaline Phosphatase 95 (46-116) U/L Total Protein 6.5 (6.4-8.2) g/dl Albumin 3.1 L (3.4-5.0) g/dl Globulin 3.4 gm/dL Albumin/Globulin Ratio 0.9 L (1-2) Urine Color Yellow (Yellow) Urine Appearance Clear (Clear) Urine pH 7.0 (5.0-8.0) Ur Specific [place] 1.025 (1.005-1.030) Urine Protein 2+ H (Negative) Urine Glucose (UA) Negative (Negative) Urine Ketones Negative (Negative) Urine Occult Blood Negative (Negative) Urine Nitrite Negative (Negative) Urine Bilirubin Negative (Negative) Urine Urobilinogen 1.0 (0.2-1.0) Ur Leukocyte Esterase Negative (Negative) Urine RBC 0-5 (0-5) /hpf Urine WBC Not seen (0-5) /hpf Ur Squamous Epith Cells 5-10 H (0-5) /hpf Urine Bacteria Few (FEW) /hpf Urine Mucus Rare (FEW) /hpf Meds: Medications Generic Name Dose Route Start Last Admin Trade Name Freq PRN Reason Stop Dose Admin Sodium Chloride 1,000 mls @ 150 mls/hr 07/13/19 08:15 07/13/19 08:16 Normal Saline IV 150 mls/hr ASDIRECTED JENNIFER Administration Sodium Chloride 10 ml 07/13/19 08:05 07/13/19 08:16 Saline Flush FLUSH 10 ml ASDIRECTED PRN Administration Keep Vein Open Discontinued Medications Generic Name Dose Route Start Last Admin Trade Name Salo PRN Reason Stop Dose Admin Hydromorphone HCl 0.25 mg 07/13/19 08:07 07/13/19 08:16 Dilaudid IVPUSH 07/13/19 08:08 0.25 mg ONETIME ONE Administration Hydromorphone HCl 0.5 mg 07/13/19 10:59 07/13/19 11:17 Dilaudid IVPUSH 07/13/19 11:00 0.5 mg ONETIME ONE Administration Ondansetron HCl 4 mg 07/13/19 10:59 07/13/19 11:17 Zofran IVPUSH 07/13/19 11:00 4 mg ONETIME ONE Administration - Re-Assessments/Exams Free Text/Narrative Re-Assessment/Exam: 07/13/19 10:[address] negative for any acute abnormalities. There is an intertrochanteric fracture of the right hip. Labs and chest xray were unremarkable. We do not have ortho coverage at this time so pt will need a transfer to [place]. pt prefers [facility]. 07/13/[address] Blancas accepted pt for transfer to [facility] as a direct admit to the ortho floor. I will administer Dilaudid 0.5mg IV and Zofran 4mg IV prior to transfer. Departure - Departure Time of Disposition: 10:55 Disposition: DC/Tfer to Acute Hospital 02 Condition: Fair Clinical Impression: Intertrochanteric fracture, hip - Discharge Information *PRESCRIPTION DRUG MONITORING PROGRAM REVIEWED*: No *COPY OF PRESCRIPTION DRUG MONITORING REPORT IN PATIENT FRANCES: No Referrals: Stephany Rose STATE AUDITOR [Primary Care Provider] - Forms: ED Department Discharge Sepsis Event Note - Evaluation Sepsis Screening Result: No Definite Risk - Focused Exam Vital Signs: Vital Signs Temp Pulse Resp BP Pulse Ox 07/13/19 12:02 74 13 167/73 H 98 07/13/19 07:29 98.1 F 79 14 182/74 H 85 L Date Exam was Performed: 07/13/19 Time Exam was Performed: 12:21 - My Orders Last 24 Hours: My Active Orders 07/13/19 08:04 Peripheral IV Insertion Adult [OM.PC] Stat 07/13/19 08:05 Sodium Chloride 0.9% [Saline Flush] 10 ml FLUSH ASDIRECTED PRN 07/13/19 08:06 Peripheral IV Care [RC] . DIRECTED 07/13/19 08:15 Sodium Chloride 0.9% [Normal Saline] 1,000 ml IV ASDIRECTED 07/13/19 11:30 Insert Cantu Catheter [Insert Urinary Catheter] [OM.PC] Q24H Urinary Catheter Assessment [RC] ASDIRECTED - Assessment/Plan Last 24 Hours: My Active Orders 07/13/19 08:04 Peripheral IV Insertion Adult [OM.PC] Stat 07/13/19 08:05 Sodium Chloride 0.9% [Saline Flush] 10 ml FLUSH ASDIRECTED PRN 07/13/19 08:06 Peripheral IV Care [RC] . DIRECTED 07/13/19 08:15 Sodium Chloride 0.9% [Normal Saline] 1,000 ml IV ASDIRECTED 07/13/19 11:30 Insert Cantu Catheter [Insert Urinary Catheter] [OM.PC] Q24H Urinary Catheter Assessment [RC] ASDIRECTED
[2019-07-13] MEDS ORDERED: Sodium Chloride 0.9% 1,000 ML IV SCH (08:15)
--- NOTE | 2019-07-13 08:58 | CT ---
Head CT Technique: Multiple axial sections through the brain were obtained. Intravenous contrast was not utilized. Comparison: Previous head CT study of 10/19/17. Findings: Ventricles along the basal cisterns and sulci over the convexities are moderately prominent. Diffuse diminished density is noted within the periventricular and subcortical white matter compatible with diffuse small vessel ischemic demyelination change. Several old lacunar infarcts are noted within the basal ganglia. No other abnormal parenchymal densities are seen. No evidence of intracranial hemorrhage. No midline shift or mass effect is appreciated. Diffuse atherosclerotic calcification is noted within the carotid siphon and within the vertebral vessels. Bone window settings shows mild mucosal thickening within portions of the right mastoid sinus. Other mastoid sinuses are clear. Paranasal sinuses that are seen. There clear. No acute calvarial abnormality is seen. Impression: 1. Senescent changes as noted above. 2. Minimal area of mucosal thickening within the right mastoid sinus which is most likely incidental. 3. No acute intracranial abnormality is appreciated. Diagnostic code #2 This report was dictated in [place] Standard Time
--- NOTE | 2019-07-13 09:52 | CR ---
Chest: AP view of the chest was obtained. Comparison: Prior chest x-ray of 06/20/18. Heart is mildly enlarged. Tortuous thoracic aorta is seen. Stable atelectasis within the left lung base is noted. Previous shoulder surgery is noted on the right side. Lungs show no acute parenchymal change. Impression: 1. Heart is mildly enlarged. 2. Other findings as noted above. 2. Nothing acute is definitely appreciated. Diagnostic code #2 This report was dictated in [place] Standard Time
--- NOTE | 2019-07-13 09:55 | CR ---
Pelvis and right hip: AP view of the pelvis was obtained as well as AP and cross table lateral views of the right hip were obtained. Comparison: Previous pelvis and right hip exam of 12/31/16. Mild joint space narrowing is seen within both hips. Vascular calcification is noted. Joint space narrowing and sclerosis is noted within the left sacroiliac joint. Previous lumbar spine surgery is noted. Acute fracture is noted within the intertrochanteric region of the right hip. Slightly displaced lesser trochanter fragment is seen. No additional fracture or other abnormality is seen. Impression: 1. Acute intertrochanteric fracture within the right hip. 2. Other findings which are believed to be incidental as noted above. Diagnostic code #3 This report was dictated in [place] Standard Time
[2019-07-13] MEDS ORDERED: Ondansetron 4 MG/2 ML SDV IVPUSH ONE (10:59)
== END 2019-07-13 11:50 ==
LOC: JD.ED 07:20
DX: S72.141A Displaced intertrochanteric fracture of right femur, initial encounter for closed fracture (principal); Z88.1 Allergy status to other antibiotic agents; Z88.0 Allergy status to penicillin; Z79.899 Other long term (current) drug therapy; W19.XXXA Unspecified fall, initial encounter
CPT/HCPCS: 36415; 70450; 70450-26; 71045; 71045-26; 73502-26-RT; 73502-RT; 80053; 81001; 85025; 96361; 96374; 96375; 96376; 99285; 99285-25; J1170; J2405; J7030